=== PATIENT | female | born 1950 | race Caucasian/White ===

== ENCOUNTER 2018-01-21 09:51 | Outpatient (CLI) | payer MEDICARE ==
[2018-01-21 13:46] LABS: Bilirubin Negative (Negative); Blood, Urine Negative (Negative); Clarity CLEAR (Clear); Glucose, Urine (Dipstick) Negative (Negative); Leukocyte Negative (Negative); Nitrite Negative (Negative); Protein, Urine (Dipstick) Negative (Neg-Trace); Specific Gravity, Urine 1.015 (1.002-1.036); pH, Urine 6.5 (5.0-9.0)
[2018-01-21 13:47] LABS: #Eosinphils 0.1 thou/uL (0.0-0.7); #Lymphocytes 1.8 thou/uL (1.20-3.40); #Monocytes 0.3 thou/uL (0.11-0.59); #Neutrophils 2.7 thou/uL (1.40-6.50); %Basophils 0.9 % (0.0-1.0); %Eosinophils 2.6 % (0.0-10.0); %Lymphocytes 36.2 % (21.0-51.0); %Monocytes 6.3 % (0.0-10.0); Hemoglobin 13.2 g/dL (12.0-16.0); Mean Corpuscular Hemoglobin 32.3 pg (27.0-31.0); Mean Corpuscular Volume 95.2 fL (78.0-98.0); Mean Platelet Volume 6.4 fL (7.4-10.4); Platelet Count 249 thou/uL (130-400); RBC Distribution Width 11.9 % (11.5-14.5); Red Blood Cell (RBC) Count 4.08 mill/uL (4.20-5.40)
[2018-01-21 13:51] LABS: Bacteria/HPF None Seen HPF (None Seen); Hyaline Casts/LPF 0-3 HYALINE CAST LPF (0-3 Hyaline); Pathc Cast-AUWi Flag 0.43 (0-2.49); RBC/HPF 0-3 HPF (0-3); Squamous Epithelial 0-3 HPF (0-3); WBC/HPF None Seen HPF (0-3)
[2018-01-21 13:52] LABS: PTT 26.5 SEC (22.9-36.1); Prothrombin Time 13.3 SEC (12.0-14.7)
[2018-01-21 14:26] LABS: Anion Gap 11 mmol/L (10-20); BUN (Urea Nitrogen) 22 mg/dL (9.8-20.1); Calc. Creatinine Clearance 0 mL/min (70-130); Calcium 9.5 mg/dL (7.8-10.44); Carbon Dioxide 27 mmol/L (23-31); Chloride 101 mmol/L (98-107); Estimated GFR-MDRD 65; Glucose 91 mg/dL (80-115); Potassium 3.3 mmol/L (3.5-5.1); Sodium 136 mmol/L (136-145)
--- NOTE | 2018-01-21 14:35 | EKG ---
Test Reason : Blood Pressure : / mmHG Vent. Rate : 071 BPM Atrial Rate : 071 BPM P-R Int : 164 ms QRS Dur : 100 ms QT Int : 422 ms P-R-T Axes : -05 -14 122 degrees QTc Int : 458 ms Normal sinus rhythm Incomplete right bundle branch block Left ventricular hypertrophy with repolarization abnormality Abnormal ECG When compared with ECG of 16-AUG-2014 06:43, Nonspecific T wave abnormality, improved in Inferior leads T wave inversion less evident in Anterolateral leads Confirmed by DILMA KING, SMatheus ([id number]) on 01/21/2018 2:35:00 PM Referred By: SOFÍA Confirmed By:DR. Karin PERERA MD
--- NOTE | 2018-01-21 14:47 | RAD ---
TWO VIEWS CHEST: Comparison: 08-15-14 History: Pre-operative radiograph. FINDINGS: Two views of the chest shows normal sized cardiomediastinal silhouette with atherosclerotic calcifica tions in the aorta. Patient has a moderate hiatal hernia. There is no evidence of consolidation, mass , or pleural effusion. IMPRESSION: 1. No evidence of acute cardiopulmonary disease. 2. Hiatal hernia. 3. Atherosclerotic disease. POS: [facility]
== END 2018-01-21 09:52 | disposition home or self-care (01) ==
LOC: LABBT 09:51
PROVIDERS: ATTEND Orthopaedic Surgery
DX: Z01.818 Encounter for other preprocedural examination (principal); M17.12 Unilateral primary osteoarthritis, left knee; K44.9 Diaphragmatic hernia without obstruction or gangrene; I70.0 Atherosclerosis of aorta
CPT/HCPCS: 71046; 80048; 81001; 85025; 85610; 85730; 87081; 93005; 93010

== ENCOUNTER 2018-01-21 13:00 | Inpatient (IN) | payer MEDICARE ==
[2018-02-02] MEDS ORDERED: CEFAZOLIN 2 GM/50 ML BAG ONE (06:05)
[2018-02-02] MEDS ORDERED: Sodium Chloride 0.9% 100 ML ONE (06:05)
[2018-02-02] MEDS ORDERED: Tranexamic Acid 1,000 MG/10 ML VIAL ONE (06:05)
[2018-02-02] MEDS ORDERED: Vancomycin HCl 1.5 GM in Sodium Chloride 0.9% 250 ML 300 ML IVPB SCH (06:15)
[2018-02-02] MEDS ORDERED: Lidocaine 1% (PF) 30 ML VIAL ONE (06:17)
[2018-02-02] MEDS ORDERED: Fentanyl 100 MCG/2 ML VIAL ONE ×5 (06:17→10:45)
[2018-02-02] MEDS ORDERED: Midazolam HCl 2 mg/2 ml Vial ONE (06:17)
[2018-02-02] MEDS ORDERED: Promethazine HCl 25 MG/ML VIAL IM PRN ×3 (06:52→07:56)
[2018-02-02] MEDS ORDERED: traMADol HCl 50 MG TAB PO PRN ×3 (06:52→07:47)
[2018-02-02] MEDS ORDERED: HYDROcodone/Acetaminophen 10/325 mg Tablet PO PRN ×3 (06:52→07:47)
[2018-02-02] MEDS ORDERED: Zolpidem Tartrate 5 MG TAB PO PRN ×2 (06:52→07:47)
[2018-02-02] MEDS ORDERED: diphenhydrAMINE 25 MG CAP PO PRN (06:52)
[2018-02-02] MEDS ORDERED: Acetaminophen 325 MG TAB PO PRN (06:52)
[2018-02-02] MEDS ORDERED: Ondansetron PF 4 MG/2 ML Vial IVP PRN ×2 (06:52→07:47)
[2018-02-02] MEDS ORDERED: tiZANidine HCl 4 MG TAB PO PRN (06:55)
[2018-02-02] MEDS ORDERED: Lorazepam 1 MG TAB PO PRN (06:55)
[2018-02-02] MEDS ORDERED: Hyoscyamine Sulfate SL 0.125 mg Tablet SL PRN (06:55)
[2018-02-02] MEDS ORDERED: CEFAZOLIN/Water 2 GM/20 ML SYRINGE SLOW IVP SCH (07:00)
[2018-02-02] MEDS ORDERED: Fentanyl 100 MCG/2 ML VIAL SLOW IVP PRN (07:48)
[2018-02-02] MEDS ORDERED: Promethazine HCl 25 MG/ML VIAL SLOW IVP PRN (07:56)
[2018-02-02] MEDS ORDERED: Ondansetron HCl/PF 4 MG/2 ML Vial IVP PRN (07:56)
[2018-02-02] MEDS ORDERED: Losartan/Hydrochlorothiazide 100 mg/25 mg Tablet PO SCH (09:00)
[2018-02-02] MEDS ORDERED: Non-Formulary Item 1 EACH (Multivitamin [Daily Multiple Vitamin] 1 TAB) PO SCH (09:00)
[2018-02-02] MEDS ORDERED: TROSPIUM 20 MG TABLET PO SCH (09:30)
[2018-02-02] MEDS ORDERED: Ketorolac Tromethamine 30 MG/ML VIAL ONE (10:07)
--- NOTE | 2018-02-02 10:39 | RAD ---
TWO VIEW LEFT KNEE: Indication: Total left knee post op, post-surgical evaluation. FINDINGS: There is a left knee arthroplasty without hardware complication. Expected post procedural findings of the regional soft tissues are seen. There is no acute osseous abnormality. IMPRESSION: Post-operative left knee. POS: [facility]
[2018-02-02] MEDS ORDERED: Acetaminophen 1,000 MG in Premix Bag 1 BAG IVPB SCH (11:00)
[2018-02-02] MEDS ORDERED: Ketorolac Tromethamine 30 MG/ML VIAL IVP SCH ×2 (12:00→14:00)
[2018-02-02 12:59] VITALS: BMI 35.0
[2018-02-02] MEDS: Sodium Chloride 0.9% 1,000 ML IV SCH ×3 (13:08→22:42)
[2018-02-02] MEDS: Aspirin 81 mg Enteric Coated Tablet PO SCH ×2 (13:09→19:56)
[2018-02-02] MEDS: CEFAZOLIN 2 GM/50 ML-DEXTROSE 2 GM in Premix Bag 1 BAG IVPB SCH ×2 (14:23→22:41)
--- NOTE | 2018-02-02 16:18 | OP ---
DATE OF PROCEDURE: 02/02/2018 PREOPERATIVE DIAGNOSIS: End-stage tricompartmental osteoarthritis, left knee. POSTOPERATIVE DIAGNOSIS: End-stage tricompartmental osteoarthritis, left knee. PROCEDURE PERFORMED: Cemented cruciate sparing computer-assisted navigated left total knee arthroplasty. TEACHER LEARNING DISABLED: Bayron Richards PA-C. ANESTHESIA: General via LMA augmented with indwelling femoral block with a single shot of sciatic block. COMPONENTS USED: [employer] triathlon size 4 cruciate sparing cemented primary femoral component with a size 4 cruciate sparing primary size 4 tibial cemented component, 11 mm polyethylene fixed bearing insert, and 829 patella button. TOURNIQUET TIME: 55 minutes at 300 mmHg. FINDINGS: End-stage severe degenerative tricompartmental disease, zswy-ye-fadu arthrosis, periarticular osteophyte formation, large serous effusion, hypertrophic synovium, and changes consistent with degenerative genu varum. DRAINS: None. SPECIMENS: None. COMPLICATIONS: None. COUNTS: Correct. INDICATIONS FOR SURGERY: Melanie is a 67-year-old white female, who has had progressive left knee pain when standing and walking for the last 5 to 7 years. She has failed conservative management and elected to proceed with total knee arthroplasty for definitive treatment of her pain. PROCEDURE IN DETAIL: After informed consent was obtained in the preoperative holding area, the patient was taken to the operative suite where general anesthesia was induced. Once adequate level of general anesthesia was obtained, the patient was positioned and a well-padded tourniquet was placed around the left proximal thigh. The left lower extremity was then prepped and draped in the usual sterile fashion. Prior to exsanguination, a time-out was called and all members of the surgical team agreed upon site, surgeon, and patient. The extremity was then exsanguinated and the tourniquet was raised. A midline longitudinal incision was then made directly over the patella extending 2 fingerbreadths above the superior pole of the patella and 2 fingerbreadths inferior to the inferior patellar pole of the patella. Deeper subcutaneous layers were dissected sharply and local bleeding was controlled with Bovie electrocautery. A quad tendon longitudinal split was then made sharply and a median parapatellar arthrotomy was carried out both sharp and with Bovie electrocautery, carried down to 1 fingerbreadth medial to the tibial tubercle. The knee was then placed into flexion and the patella was everted nicely, and a copious fat pad ectomy was performed allowing for greater exposure of the tibia. The computer-assisted distal femoral fiducial was then placed and pinned firmly, and the distal femoral cutting guide was pinned firmly into place. The oscillating saw was then used to remove the appropriate amount of bone. The 4-in-1 cutting block was then placed on the distal femur and the oscillating saw was used to remove the appropriate amount of bone off the anterior, posterior, and chamfer cuts. After completion of bone cuts, the anterior cruciate ligament was resected sharply and the posterior cruciate ligament retractor was placed and the tibia was subluxed for better exposure. Partial meniscectomies were carried out, and the tibial computer-assisted fiducial was pinned, and the cutting guide was placed. Oscillating saw was then used to remove the bone, with Hohmann retractors used to take care and protect the collateral ligaments. After the tibial resection was performed, a laminar ambulatory care nurse was placed in between the freshened bone cuts. The knee placed at 90 degrees and further bilateral meniscectomies were carried out, and the curved osteotome and curettage were used to remove any excess bone spurs in the posterior compartment. The trial femoral component, tibial baseplate were placed with the appropriate polyethylene trial insert with an appropriate polyethylene spacer and patellar button. The knee was taken through full range of motion with flexion and extension from 0 to 90 degrees and patellar broach squarely in the trochlea without any squinting or subluxation noted. The knee was also stable to varus and valgus stressing at 0, 15, 45, and 90 degrees of flexion. The drawer was negative. All trial components were then removed and the keel punch was used to provide the appropriate defect in the tibia with a mallet. The freshened bone cuts were copiously irrigated with pulsatile lavage of about 1.5 L to remove all excess debris. The freshened bone cuts were then dried with suction and lap sponge. The knee was placed in flexion and retractors were placed to provide access to all bone cuts. Tobramycin-impregnated methyl methacrylate cement was then placed on the freshened bone cuts and implants which were malleted firmly into place. Curettage and Yermo elevators were used to remove any excess bone cement. The knee was placed into full extension and the patellar button was placed under compression, and the cement was allowed to cure. Once completed, the components were again taken through full range of motion and copious irrigation of the knee was carried out with another liter of normal saline. All components were inspected fully with full range of motion and varus and valgus stressing. There was no laxity noted and full extension was observed clinically. Primary closure was accomplished with #2 interrupted Vicryl stitch of the arthrotomy defect. This was oversewn with a #2 running Quill barbed stitch. The subcutaneous layer was then closed with a running 0 barbed Monocryl stitch and skin closure accomplished with a running subcuticular 3-0 Monocryl barbed Quill stitch and augmented with cement on the skin. Tourniquet was lowered. Good spontaneous return of distal pulses was noted clinically and a sterile dressing was applied to the incision. The procedure was terminated without any complications. The patient was awakened in the operative suite and taken to the recovery room in stable condition. Job ID: [id number]
[2018-02-02] MEDS: Ketorolac Tromethamine 30 MG/ML VIAL IVP SCH ×2 (16:25→22:40)
[2018-02-02] MEDS ORDERED: PROPOFOL 200 MG/20 ML VIAL ONE (17:48)
[2018-02-02] MEDS ORDERED: Lidocaine 1% PF 5 ML VIAL ONE (17:48)
[2018-02-02] MEDS ORDERED: Ondansetron PF 4 MG/2 ML Vial ONE (17:48)
[2018-02-02] MEDS ORDERED: Bupivacaine HCl 0.5%/Epinephrine 1:200,000/PF 30 ml Vial ONE (19:04)
[2018-02-02] MEDS ORDERED: Bupivacaine 0.25% HCL 30 ML VIAL ONE (19:04)
[2018-02-02] MEDS ORDERED: Ropivacaine 0.5% HCl/PF (150 MG/30 ML VIAL) ONE (19:04)
[2018-02-02] MEDS: Gabapentin 100 MG CAP PO SCH (19:56)
[2018-02-02] MEDS: TROSPIUM 20 MG TABLET PO SCH (19:59)
[2018-02-02] MEDS ORDERED: Amlodipine 10 MG TAB PO SCH (21:00)
[2018-02-02] MEDS ORDERED: Prevnar 13-Val Conj/PF 0.5 ML SYRINGE IM ONE (21:00)
[2018-02-03] MEDS: Ketorolac Tromethamine 30 MG/ML VIAL IVP SCH ×4 (04:47→21:51)
[2018-02-03 06:22] LABS: Hemoglobin 10.4 g/dL (12.0-16.0); Mean Corpuscular HGB CONC 34.5 g/dL (32.0-36.0); Mean Corpuscular Hemoglobin 33.2 pg (27.0-31.0); Mean Corpuscular Volume 96.1 fL (78.0-98.0); Mean Platelet Volume 6.1 fL (7.4-10.4); Platelet Count 177 thou/uL (130-400); RBC Distribution Width 11.9 % (11.5-14.5); Red Blood Cell (RBC) Count 3.13 mill/uL (4.20-5.40); White Blood Cell (WBC) Count 4.9 thou/uL (4.8-10.8)
[2018-02-03] MEDS: Senokot S 8.6-50 MG TAB PO SCH ×2 (08:10→21:50)
[2018-02-03] MEDS: Ferrous Gluconate 324 MG TAB PO SCH ×2 (08:10→21:50)
[2018-02-03] MEDS: Aspirin 81 mg Enteric Coated Tablet PO SCH ×2 (08:10→21:49)
[2018-02-03] MEDS: TROSPIUM 20 MG TABLET PO SCH ×2 (08:11→21:49)
[2018-02-03] MEDS: Multivitamin W/ Minerals 1 TAB PO SCH (08:11)
[2018-02-03] MEDS: HYDROcodone/Acetaminophen 10/325 mg Tablet PO PRN ×2 (08:14→14:36)
[2018-02-03] MEDS ORDERED: Losartan/Hydrochlorothiazide 100 mg/25 mg Tablet PO SCH (09:00)
[2018-02-03] MEDS: Ropivacaine HCl/PF 250 ML in Premix Bag 1 BAG NERVE BLCK SCH (10:08)
[2018-02-03] MEDS: Sodium Chloride 0.9% 1,000 ML IV SCH ×2 (12:09→23:34)
--- NOTE | 2018-02-03 13:41 | CON ---
DATE OF CONSULTATION: DATE OF PROCEDURE: 02/02/2018. REASON FOR CONSULTATION: Medical management. HOSPITAL COURSE: This is a 67-year-old female patient with history of lymphoma, status post chemotherapy, history of hypertension, and end-stage degenerative joint disease of her knees, who presented for left total knee replacement. The patient has failed outpatient therapy of her arthritis and was admitted by Dr. Marcano for left total knee replacement due to end-stage arthritis and definitive treatment of her pain and arthritis of her knee. She underwent computer-assisted left total knee arthroplasty by Dr. Marcano yesterday. She has had uneventful postoperative period so far. Her blood pressure has been controlled. It is little bit low this morning after her pain medicines, but she is otherwise doing well. Denies chest pain, shortness of breath. Her appetite is okay. She was able to walk to the bathroom. Her Alexander catheter has been removed. PAST MEDICAL HISTORY: Lymphoma diagnosed in 2011 followed by Oncology as she is status post chemotherapy and radiation therapy and doing well, hypertension, degenerative joint disease, history of reflux, history of depression and anxiety. HOME MEDICATIONS: Include: 1. Tylenol p.r.n. 2. Norvasc 10 mg daily. 3. Aspirin 81 mg daily. 4. Gabapentin 100 mg at bedtime. 5. Losartan/hydrochlorothiazide 100/25 once daily. 6. Levsin p.r.n. ALLERGIES: NONE KNOWN. PAST SURGICAL HISTORY: Includes hysterectomy, status post fundoplication, status post left meniscal tear repair. FAMILY HISTORY: Noncontributory. SOCIAL HISTORY: She is . Lives at home with her with help from her family and neighbors. No smoking. No alcohol. REVIEW OF SYSTEMS: As per the history of present illness. CONSTITUTIONAL: She denies any recent fevers, chills, or recent illness. HEENT: No headache, visual, or hearing changes. CARDIAC: No chest pain, shortness of breath, or palpitations. PULMONARY: Denies cough or hemoptysis. GI: Positive for history of reflux. No abdominal pain, melena, or hematochezia. : Denies dysuria or hematuria. NEUROLOGIC: No seizures or syncope. MUSCULOSKELETAL: Positive for arthritis with persistent joint pain. PHYSICAL EXAMINATION: VITAL SIGNS: Temperature 99.2, pulse of 90, respirations 18, blood pressure 104/64, and pulse ox is 95% on room air. GENERAL: She is awake and alert, in no acute distress. Speech is clear. NECK: Supple. HEART: Regular rate and rhythm. LUNGS: Clear bilaterally. ABDOMEN: Soft. Positive bowel sounds. EXTREMITIES: No edema. 2+ peripheral pulses bilaterally. Dressing on the left knee. LABORATORY DATA: White blood cell count this morning 4,900, hemoglobin and hematocrit 10.4 and 30.1, and platelets of 177. ASSESSMENT AND PLAN: This is a 67-year-old female patient with a history of lymphoma in remission and hypertension which is controlled, now status post left total knee replacement. 1. Postoperative care as per Orthopedics. She is to start physical therapy and she has home therapy arranged upon her discharge. 2. Hypertension. We will continue her medications. I will watch for low readings due to her analgesia and monitor closely. 3. Lymphoma, in remission. Continue monitoring as an outpatient. We will follow along with you. Job ID: [id number]
[2018-02-03] MEDS: Amlodipine 10 MG TAB PO SCH (21:50)
[2018-02-03] MEDS: Gabapentin 100 MG CAP PO SCH (21:50)
[2018-02-04] MEDS: Ketorolac Tromethamine 30 MG/ML VIAL IVP SCH ×2 (05:00→14:24)
[2018-02-04 06:37] LABS: Hemoglobin 10.9 g/dL (12.0-16.0); Mean Corpuscular HGB CONC 33.1 g/dL (32.0-36.0); Mean Corpuscular Hemoglobin 32.3 pg (27.0-31.0); Mean Corpuscular Volume 97.5 fL (78.0-98.0); Mean Platelet Volume 6.4 fL (7.4-10.4); Platelet Count 205 thou/uL (130-400); RBC Distribution Width 11.8 % (11.5-14.5); Red Blood Cell (RBC) Count 3.38 mill/uL (4.20-5.40); White Blood Cell (WBC) Count 4.9 thou/uL (4.8-10.8)
[2018-02-04] MEDS: HYDROcodone/Acetaminophen 10/325 mg Tablet PO PRN ×2 (08:40→20:31)
[2018-02-04] MEDS: Multivitamin W/ Minerals 1 TAB PO SCH (08:43)
[2018-02-04] MEDS: Aspirin 81 mg Enteric Coated Tablet PO SCH ×2 (08:44→20:31)
[2018-02-04] MEDS: Ferrous Gluconate 324 MG TAB PO SCH ×2 (08:44→20:31)
[2018-02-04] MEDS: Senokot S 8.6-50 MG TAB PO SCH ×2 (08:44→20:31)
[2018-02-04] MEDS: TROSPIUM 20 MG TABLET PO SCH ×2 (08:48→20:31)
[2018-02-04] MEDS: Sodium Chloride 0.9% 1,000 ML IV SCH ×3 (08:53→20:34)
[2018-02-04] MEDS: Ropivacaine HCl/PF 250 ML in Premix Bag 1 BAG NERVE BLCK SCH (14:23)
[2018-02-04] MEDS: Gabapentin 100 MG CAP PO SCH (20:31)
[2018-02-04] MEDS: Amlodipine 10 MG TAB PO SCH (20:34)
[2018-02-05 07:50] VITALS: TEMP 97.5
[2018-02-05] MEDS: HYDROcodone/Acetaminophen 10/325 mg Tablet PO PRN (08:13)
[2018-02-05] MEDS: Ferrous Gluconate 324 MG TAB PO SCH (08:13)
[2018-02-05] MEDS: Senokot S 8.6-50 MG TAB PO SCH (08:13)
[2018-02-05] MEDS: TROSPIUM 20 MG TABLET PO SCH (08:14)
[2018-02-05] MEDS: Aspirin 81 mg Enteric Coated Tablet PO SCH (08:14)
[2018-02-05] MEDS: Multivitamin W/ Minerals 1 TAB PO SCH (08:16)
[2018-02-05 11:35] VITALS: BP 129/78
== END 2018-02-05 12:42 | disposition home or self-care (01) | DRG 470 ==
LOC: SJJU 02-02 05:45 → EDSTATUS 02-02 13:00
PROVIDERS: ADMIT Orthopaedic Surgery; ATTEND Orthopaedic Surgery
PROC: 0SRD0J9 Replacement of Left Knee Joint with Synthetic Substitute, Cemented, Open Approach (ICD-10-PCS; principal; 2018-02-02)
DX: M17.12 Unilateral primary osteoarthritis, left knee (principal); C85.90 Non-Hodgkin lymphoma, unspecified, unspecified site; I10 Essential (primary) hypertension; K21.9 Gastro-esophageal reflux disease without esophagitis; F32.9 Major depressive disorder, single episode, unspecified; F41.9 Anxiety disorder, unspecified
CPT/HCPCS: 36415; 85027; C1713; C1776; G8978-GP-CK; G8979-GP-CI; J0131; J0670; J1885; J2001; J2250; J2405; J2704; J2795; J3010; J3370; J7050; S0020

== ENCOUNTER 2018-01-28 10:32 | Outpatient (CLI) | payer MEDICARE | END 2018-01-28 10:33 | disposition home or self-care (01) | LOC: LABBT 10:32 | PROVIDERS: ATTEND Orthopaedic Surgery | DX: Z01.812 Encounter for preprocedural laboratory examination (principal); M17.12 Unilateral primary osteoarthritis, left knee | CPT/HCPCS: 86850; 86900; 86901 ==

== ENCOUNTER 2018-04-08 10:36 | Outpatient (CLI) | payer MEDICARE ==
--- NOTE | 2018-04-08 14:56 | CT ---
CT ABDOMEN AND PELVIS WITH CONTRAST: HISTORY: Left flank pain, kidney stones, lymphoma. COMPARISON: A PET CT from 2014. FINDINGS: Lung bases are clear. No pericardial effusion. Large sliding hiatal hernia containing 30% of the ga stric volume within the thoracic cavity. The spleen is unremarkable. Multiple splenic arterial calcifications. The aortic contour is nonaneu rysmal. There is abnormal thickening of the left pelvic sidewall adjacent to the sigmoid colon which could be ovarian remnant versus thickening from prior diverticulitis and less likely a mass. Extensive diver ticular disease sigmoid colon. No retroperitoneal adenopathy. No adenopathy at the abnormal focus in left periaortic region seen in 2012. The exam is limited as it is abnormally delayed and there is contrast within the renal collecting sys tems limiting evaluation for a calculus. No renal calculus or ureteral calculus is appreciated. No hydroureteral nephrosis. O secondary evidence of a recently passed stone. Adrenal glands are unremarkable. Severe facet arthrosis lower lumbar spine. No suspicious osteolyti c or osteoblastic lesions. The liver and gallbladder are normal. IMPRESSION: 1. No acute inflammatory process of the abdomen and pelvis. 2. Unchanged large sliding hiatal hernia since 2012. 3. Soft tissue mass along the left pelvic sidewall felt to represent the ovarian remnant as this is unchanged from 2012 exam. 4. Extensive diverticular disease sigmoid colon without active inflammation. 5. No evidence of active lymphoma. No adenopathy. POS: [facility]
== END 2018-04-08 10:37 | disposition home or self-care (01) ==
LOC: SCSCT 10:36
PROVIDERS: ATTEND Internal Medicine Hematology & Oncology
DX: R10.9 Unspecified abdominal pain (principal); K44.9 Diaphragmatic hernia without obstruction or gangrene; K57.30 Diverticulosis of large intestine without perforation or abscess without bleeding; R19.09 Other intra-abdominal and pelvic swelling, mass and lump; Z85.72 Personal history of non-Hodgkin lymphomas
CPT/HCPCS: 74177

== ENCOUNTER 2018-08-04 14:02 | Outpatient (CLI) | payer MEDICARE ==
--- NOTE | 2018-08-05 07:33 | MMO ---
Bilateral MAMMO Bilat Diag DDI+EVIN. CLINICAL HISTORY: Patient is 68 years old and is seen for diagnostic exam. The patient has the following family history of breast cancer: sister, in 2018. The patient has a history of lymphoma. The patient has a history of right cyst aspiration in 1980 - benign. VIEWS: The views performed were: bilateral craniocaudal with tomosynthesis; bilateral mediolateral oblique with tomosynthesis; and bilateral mediolateral. FILMS COMPARED: The present examination has been compared to prior imaging studies performed at [facility] on 04/05/2015, 05/13/2016, 06/01/2017 and 06/02/2017. MAMMOGRAM FINDINGS: There are scattered fibroglandular densities. Finding 1: There are two stable intramammary lymph nodes seen in the right breast. Finding 2: There are vascular calcifications seen in both breasts. There are no suspicious masses, suspicious calcifications, or new areas of architectural distortion. IMPRESSION: THERE IS NO MAMMOGRAPHIC EVIDENCE OF MALIGNANCY. A ROUTINE FOLLOW-UP MAMMOGRAM IN 1 YEAR IS RECOMMENDED. THE RESULTS OF THIS EXAM WERE SENT TO THE PATIENT. ACR BI-RADS Category 2 - Benign finding MAMMOGRAPHY NOTE: 1. A negative mammogram report should not delay a biopsy if a dominant of clinically suspicious mass is present. 2. Approximately 10% to 15% of breast cancers are not detected by mammography. 3. Adenosis and dense breasts may obscure an underlying neoplasm.
== END 2018-08-04 14:03 | disposition home or self-care (01) ==
LOC: BICMAMMO 14:02
PROVIDERS: ATTEND Specialist
DX: R92.8 Other abnormal and inconclusive findings on diagnostic imaging of breast (principal)
CPT/HCPCS: 77066; G0279

== ENCOUNTER 2018-12-08 11:18 | Outpatient (CLI) | payer MEDICARE ==
--- NOTE | 2018-12-08 13:23 | CT ---
CT ABDOMEN AND PELVIS WITHOUT CONTRAST: Date: 12/08/18 HISTORY: Hematuria. Right-sided flank pain. COMPARISON: 04/08/18. FINDINGS: Absence of oral and IV contrast reduces the sensitivity of exam, particularly for evaluation of solid organs and bowel. A moderate sized hiatal hernia is again seen. No calcified gallstones are noted. No calculi seen in t he kidneys, ureters, or urinary bladder. No hydronephrosis noted. The small bowel loops are not abnormally dilated. Scattered colonic diverticula. No free air or free fluid is seen in the abdomen or pelvis. There are vascular calcifications without evidence of aneurysmal dilatation of the abdominal aorta. D egenerative changes are present in the spine. IMPRESSION: 1. No CT evidence of urinary tract calculi or obstruction. 2. Hiatal hernia. 3. Colonic diverticulosis. POS: [facility]
== END 2018-12-08 11:19 | disposition home or self-care (01) ==
LOC: SCSCT 11:18
PROVIDERS: ATTEND Family Medicine
DX: R31.21 Asymptomatic microscopic hematuria (principal); K44.9 Diaphragmatic hernia without obstruction or gangrene; K57.30 Diverticulosis of large intestine without perforation or abscess without bleeding
CPT/HCPCS: 74176

== ENCOUNTER 2020-01-05 07:00 | Outpatient (CLI) | payer MEDICARE ==
[2020-01-05 15:09] LABS: #Eosinphils 0.1 10x3/uL (0.0-0.5); #Monocytes 0.3 10x3/uL (0.0-1.1); #Neutrophils 3.1 10x3/uL (1.5-8.4); %Basophils 0.8 % (0.0-2.0); %Eosinophils 2.3 % (0.0-6.0); %Lymphocytes 32.6 % (18.0-47.0); %Monocytes 5.9 % (0.0-10.0); %Neutrophils 58.2 % (40.0-75.0); Hemoglobin 13.3 g/dL (12.0-16.0); Mean Corpuscular HGB CONC 34.1 G/DL (32.0-36.0); Mean Corpuscular Hemoglobin 32.3 PG (27.0-33.0); Mean Corpuscular Volume 94.7 fl (80.0-100.0); Mean Platelet Volume 8.9 fl (7.4-10.4); Platelet Count 236 10x3/uL (130-400); RBC Distribution Width 12.2 % (11.5-14.5); Red Blood Cell (RBC) Count 4.12 10x6/uL (3.90-5.20); White Blood Cell (WBC) Count 5.3 10x3/uL (4.5-11.0)
[2020-01-05 15:26] LABS: Anion Gap 13 mmol/L (10-20); BUN (Urea Nitrogen) 19 mg/dL (9.8-20.1); Calc. Creatinine Clearance 0 mL/min (70-130); Calcium 8.9 mg/dL (7.8-10.44); Carbon Dioxide 26 mmol/L (23-31); Chloride 98 mmol/L (98-107); Estimated GFR-MDRD 64; Glucose 100 mg/dL (83-110); Potassium 3.8 mmol/L (3.5-5.1); Sodium 133 mmol/L (136-145)
[2020-01-05 15:41] LABS: Prothrombin Time 10.3 sec (9.5-12.1)
[2020-01-06 14:36] LABS: SARS-CoV-2 MS2 Positive; SARS-CoV-2 N Gene Negative; SARS-CoV-2 S Gene Negative; SARS-CoV-2 by NAA Not Detected (NotDetected); SARS-CoV-2 orf1ab Negative
--- NOTE | 2020-01-10 06:55 | EKG ---
Test Reason : Blood Pressure : / mmHG Vent. Rate : 077 BPM Atrial Rate : 077 BPM P-R Int : 144 ms QRS Dur : 104 ms QT Int : 400 ms P-R-T Axes : -21 -17 138 degrees QTc Int : 452 ms Normal sinus rhythm Left ventricular hypertrophy with repolarization abnormality Abnormal ECG No previous ECGs available Confirmed by CHELLE RAMIREZ MD ([id number]) on 01/10/2020 6:54:56 AM Referred By: CALLUM Confirmed By:CHELLE RAMIREZ MD
== END 2020-01-05 07:01 | disposition home or self-care (01) ==
LOC: LABBT 07:00
PROVIDERS: ATTEND Orthopaedic Surgery
DX: Z01.818 Encounter for other preprocedural examination (principal); Z20.828 Contact with and (suspected) exposure to other viral communicable diseases; M17.11 Unilateral primary osteoarthritis, right knee
CPT/HCPCS: 80048; 85025; 85610; 87081; 93005; U0003; 87635; 93010

== ENCOUNTER 2020-02-02 15:04 | Inpatient (IN) | payer MEDICARE ==
[2020-02-02] MEDS ORDERED: HYDROcodone/Acetaminophen 10/325 mg Tablet PO PRN (16:24)
--- NOTE | 2020-02-02 16:25 | RAD ---
Exam: XR Knee Rt 2 View HISTORY: Injury after falling getting into car. COMPARISON: 01/10/2020 FINDINGS: A right total knee prosthesis noted in place. There is a comminuted fracture involving the distal rig ht femoral metadiaphysis with the fracture extending obliquely from the medial aspect of the right distal femoral metadiaphysis to the limited remaining right femoral condyle. The fracture fragments a re by 1.2 cm and mildly displaced. A suprapatellar joint effusion is seen. No dislocation is identified. IMPRESSION: Comminuted distal right femur fracture with mild separation and displacement of fracture fragments. Right knee joint effusion.
[2020-02-02] MEDS ORDERED: Vancomycin HCl 1.5 GM in Sodium Chloride 0.9% 250 ML 300 ML IVPB SCH (16:30)
[2020-02-02] MEDS ORDERED: CEFAZOLIN 2 GM in Premix Bag 1 BAG IVPB SCH (16:30)
[2020-02-02] MEDS: HYDROcodone/Acetaminophen 10/325 mg Tablet PO PRN ×2 (16:37→22:38)
[2020-02-02] MEDS: Sodium Chloride 0.9% 1,000 ML IV SCH ×2 (16:37→20:31)
[2020-02-02 16:40] LABS: #Eosinphils 0.1 thou/uL (0.0-0.7); #Lymphocytes 0.8 thou/uL (1.20-3.40); #Monocytes 0.5 thou/uL (0.11-0.59); #Neutrophils 8.8 thou/uL (1.40-6.50); %Basophils 0.1 % (0.0-1.0); %Eosinophils 0.5 % (0.0-10.0); %Lymphocytes 8.3 % (21.0-51.0); %Monocytes 4.7 % (0.0-10.0); %Neutrophils 86.4 % (42.0-75.0); Hemoglobin 11.9 g/dL (12.0-16.0); Mean Corpuscular Hemoglobin 32.8 pg (27.0-31.0); Mean Corpuscular Volume 96.3 fL (78.0-98.0); Mean Platelet Volume 6.1 fL (7.4-10.4); Platelet Count 283 thou/uL (130-400); RBC Distribution Width 11.7 % (11.5-14.5); Red Blood Cell (RBC) Count 3.62 mill/uL (4.20-5.40); White Blood Cell (WBC) Count 10.1 thou/uL (4.8-10.8)
[2020-02-02 16:41] VITALS: BMI 34.3
[2020-02-02] MEDS: Fentanyl 100 MCG/2 ML VIAL SLOW IVP PRN ×2 (17:21→20:31)
[2020-02-02] MEDS: Ketorolac Tromethamine 30 MG/ML VIAL IVP PRN (17:21)
[2020-02-03] MEDS: Fentanyl 100 MCG/2 ML VIAL SLOW IVP PRN ×2 (01:34→06:26)
[2020-02-03] MEDS: Ketorolac Tromethamine 30 MG/ML VIAL IVP PRN (01:35)
[2020-02-03] MEDS: diphenhydrAMINE 50 MG/ML VIAL IVP PRN ×2 (01:35→20:09)
[2020-02-03 06:02] LABS: Anion Gap 10 mmol/L (10-20); BUN (Urea Nitrogen) 23 mg/dL (9.8-20.1); Calc. Creatinine Clearance 88 mL/min (70-130); Calcium 8.5 mg/dL (7.8-10.44); Carbon Dioxide 30 mmol/L (23-31); Chloride 98 mmol/L (98-107); Glucose 106 mg/dL (83-110); Potassium 4.1 mmol/L (3.5-5.1); Sodium 134 mmol/L (136-145)
[2020-02-03] MEDS ORDERED: Midazolam HCl 2 mg/2 ml Vial ONE (07:58)
[2020-02-03] MEDS ORDERED: Fentanyl 100 MCG/2 ML VIAL ONE ×4 (07:58→12:51)
[2020-02-03] MEDS ORDERED: Fentanyl 100 MCG/2 ML VIAL IV PRN (08:20)
[2020-02-03] MEDS ORDERED: Zolpidem Tartrate 5 MG TAB PO PRN (08:30)
[2020-02-03] MEDS ORDERED: HYDROcodone/Acetaminophen 5/325 mg Tablet PO PRN (08:30)
[2020-02-03] MEDS ORDERED: Ropivacaine HCl/PF 250 ML in Premix Bag 1 BAG NERVE BLCK SCH (08:30)
[2020-02-03] MEDS ORDERED: Promethazine HCl 25 MG/ML VIAL IM PRN ×2 (08:30→10:53)
[2020-02-03] MEDS ORDERED: traMADol HCl 50 MG TAB PO PRN (08:30)
[2020-02-03] MEDS ORDERED: Ondansetron PF 4 MG/2 ML Vial IVP PRN (08:30)
[2020-02-03] MEDS ORDERED: Ketorolac Tromethamine 30 MG/ML VIAL IVP PRN (08:30)
[2020-02-03 09:01] LABS: SARS-CoV-2 MS2 Positive; SARS-CoV-2 N Gene Negative; SARS-CoV-2 S Gene Negative; SARS-CoV-2 by NAA Not Detected (NotDetected); SARS-CoV-2 orf1ab Negative
[2020-02-03] MEDS ORDERED: Vancomycin 1.5 GRAM/300 ML BAG ONE (09:27)
[2020-02-03] MEDS ORDERED: Phenylephrine 10 MG/ML VIAL ONE (09:33)
[2020-02-03] MEDS ORDERED: Senokot S 8.6-50 MG TAB PO PRN (10:39)
[2020-02-03] MEDS ORDERED: Acetaminophen 325 MG TAB PO PRN (10:39)
[2020-02-03] MEDS ORDERED: Ondansetron ODT 4 MG TAB PO PRN (10:39)
[2020-02-03] MEDS ORDERED: ePHEDrine 50 MG/ML VIAL ONE (10:40)
[2020-02-03] MEDS ORDERED: Bupivacaine HCl 0.5%/Epinephrine 1:200,000/PF 30 ml Vial ONE (10:40)
[2020-02-03] MEDS ORDERED: PROPOFOL 200 MG/20 ML VIAL ONE (10:40)
[2020-02-03] MEDS ORDERED: PHENYLEPHRINE-NS 100 MCG/ML 10 ML SYRINGE ONE (10:40)
[2020-02-03] MEDS ORDERED: Lidocaine 1% PF 5 ML VIAL ONE (10:40)
[2020-02-03] MEDS ORDERED: Ondansetron HCl/PF 4 MG/2 ML Vial IVP PRN (10:53)
[2020-02-03] MEDS ORDERED: Promethazine HCl 25 MG/ML VIAL SLOW IVP PRN (10:53)
[2020-02-03] MEDS: Sodium Chloride 0.9% 1,000 ML IV SCH ×2 (12:38→18:19)
--- NOTE | 2020-02-03 12:41 | OP ---
DATE OF PROCEDURE: 02/03/2020 PROCEDURE PERFORMED: Open reduction and internal fixation of right femur fracture. PREOPERATIVE DIAGNOSIS: Right distal femur fracture. POSTOPERATIVE DIAGNOSIS: Right distal femur fracture. INDEPENDENT TRADER: Xin Payne PA-C BLOOD LOSS: About 300. SPECIMEN: None. DRAINS: None. COMPLICATION: None. IMPLANTS USED: Synthes 360 mm x 13 mm retrograde nail with a locking screw proximally, locking screw distally, and a spiral blade distally. DESCRIPTION OF PROCEDURE: The patient was taken to the operating room, where general anesthesia was induced. Right leg was prepped and draped in usual sterile fashion. I opened up her old incision for her total knee. Her retinaculum was completely healed. There was no rupture of the extensor mechanism. I performed a medial parapatellar arthrotomy, evacuated hematoma from the fracture. I cleaned the fracture lines. Fracture was anatomically reduced, held with clamp, then placed a ball-tipped guide samuel across the fracture and reamed to size 13 mm. I placed a 13 mm nail up the femur and locked it as described above. This gave a very stable reduction. Pulsatile lavage irrigation was performed, total of 5 L. Retinaculum was repaired with #2 Vicryl and #2 Quill. Subcu was closed with 0 Quill. Skin was closed with 2-0 Prolene as were the portals for the locking screws and spiral blade. Job ID: [id number]
--- NOTE | 2020-02-03 14:31 | RAD ---
EXAM: 3 fluoroscopic intraoperative views of the right femur DATE: 02/03/2020 8:35 AM INDICATION: ORIF of right femur COMPARISON: Right knee radiograph dated February 02, 2020 FINDING: Since comparison examination there is been interval reduction and intramedullary rodding of the distal right femoral metadiaphyseal fracture. Fracture alignment is near anatomic. The instrumentation projects in the expected position. The total fluoroscopic time was 52.6 seconds. IMPRESSION:Intramedullary rodding of the distal right femur fracture
[2020-02-03] MEDS: Famotidine 20 MG TAB PO SCH (20:02)
[2020-02-03] MEDS: traMADol HCl 50 MG TAB PO PRN (20:02)
[2020-02-03] MEDS: Gabapentin 100 MG CAP PO SCH (20:02)
[2020-02-03] MEDS: Amlodipine 5 MG TAB PO SCH (22:17)
[2020-02-04] MEDS: Sodium Chloride 0.9% 1,000 ML IV SCH ×4 (01:54→18:17)
[2020-02-04 05:36] LABS: #Basophils 0.1 thou/uL (0.0-0.2); #Eosinphils 0.2 thou/uL (0.0-0.7); #Lymphocytes 0.9 thou/uL (1.20-3.40); #Monocytes 0.4 thou/uL (0.11-0.59); #Neutrophils 3.4 thou/uL (1.40-6.50); %Eosinophils 4.3 % (0.0-10.0); %Lymphocytes 18.8 % (21.0-51.0); %Monocytes 8.9 % (0.0-10.0); %Neutrophils 67.1 % (42.0-75.0); Hemoglobin 7.7 g/dL (12.0-16.0); Mean Corpuscular HGB CONC 33.1 g/dL (32.0-36.0); Mean Corpuscular Hemoglobin 32.4 pg (27.0-31.0); Mean Corpuscular Volume 97.8 fL (78.0-98.0); Mean Platelet Volume 6.1 fL (7.4-10.4); Platelet Count 169 thou/uL (130-400); RBC Distribution Width 11.9 % (11.5-14.5); Red Blood Cell (RBC) Count 2.39 mill/uL (4.20-5.40)
--- NOTE | 2020-02-04 08:32 | RAD ---
RIGHT ANKLE 3 VIEWS: Date: 02/04/2020 HISTORY: Fall, right ankle pain. FINDINGS/IMPRESSION: Soft tissue swelling is present. The ankle mortise is maintained. No acute fracture or dislocation is seen. There is a plantar calcaneal spur. POS: [facility]
[2020-02-04] MEDS: Zinc Sulfate 220 MG CAP PO SCH (08:44)
[2020-02-04] MEDS: Aspirin 81 mg Enteric Coated Tablet PO SCH (08:44)
[2020-02-04] MEDS: Multivitamin W/ Minerals 1 TAB PO SCH (08:44)
[2020-02-04] MEDS: Famotidine 20 MG TAB PO SCH ×2 (08:44→19:39)
[2020-02-04] MEDS: Ascorbic Acid 500 mg Chewable Tablet PO SCH (08:44)
[2020-02-04] MEDS: Losartan 25 MG TAB PO SCH (08:45)
[2020-02-04] MEDS: Hydrochlorothiazide 25 MG TAB PO SCH (08:45)
[2020-02-04 16:57] LABS: Hemoglobin 9.2 g/dL (12.0-16.0)
[2020-02-04] MEDS: diphenhydrAMINE 50 MG/ML VIAL IVP PRN (19:38)
[2020-02-04] MEDS: traMADol HCl 50 MG TAB PO PRN (19:39)
[2020-02-04] MEDS: Gabapentin 100 MG CAP PO SCH (19:40)
[2020-02-04] MEDS: Amlodipine 5 MG TAB PO SCH (21:29)
[2020-02-05] MEDS: HYDROcodone/Acetaminophen 5/325 mg Tablet PO PRN (03:51)
[2020-02-05] MEDS: Sodium Chloride 0.9% 1,000 ML IV SCH ×3 (03:53→16:34)
[2020-02-05] MEDS: Ascorbic Acid 500 mg Chewable Tablet PO SCH (09:17)
[2020-02-05] MEDS: Losartan 25 MG TAB PO SCH (09:17)
[2020-02-05] MEDS: Hydrochlorothiazide 25 MG TAB PO SCH (09:17)
[2020-02-05] MEDS: Multivitamin W/ Minerals 1 TAB PO SCH (09:17)
[2020-02-05] MEDS: Famotidine 20 MG TAB PO SCH ×2 (09:17→19:36)
[2020-02-05] MEDS: Aspirin 81 mg Enteric Coated Tablet PO SCH (09:17)
[2020-02-05] MEDS: Zinc Sulfate 220 MG CAP PO SCH (09:18)
[2020-02-05] MEDS: Amlodipine 5 MG TAB PO SCH (19:35)
[2020-02-05] MEDS: Gabapentin 100 MG CAP PO SCH (19:36)
[2020-02-06] MEDS: Sodium Chloride 0.9% 1,000 ML IV SCH ×3 (03:00→18:42)
[2020-02-06] MEDS: traMADol HCl 50 MG TAB PO PRN (05:25)
[2020-02-06] MEDS: Famotidine 20 MG TAB PO SCH ×2 (09:06→20:30)
[2020-02-06] MEDS: Aspirin 81 mg Enteric Coated Tablet PO SCH (09:06)
[2020-02-06] MEDS: Losartan 25 MG TAB PO SCH (09:06)
[2020-02-06] MEDS: Zinc Sulfate 220 MG CAP PO SCH (09:07)
[2020-02-06] MEDS: Hydrochlorothiazide 25 MG TAB PO SCH (09:07)
[2020-02-06] MEDS: Multivitamin W/ Minerals 1 TAB PO SCH (09:07)
[2020-02-06] MEDS: Ascorbic Acid 500 mg Chewable Tablet PO SCH (09:07)
[2020-02-06] MEDS ORDERED: Ropivacaine HCl/PF 250 ML in Premix Bag 1 BAG NERVE BLCK SCH (13:30)
[2020-02-06] MEDS: Amlodipine 5 MG TAB PO SCH (20:30)
[2020-02-06] MEDS: Gabapentin 100 MG CAP PO SCH (20:32)
[2020-02-06] MEDS: HYDROcodone/Acetaminophen 5/325 mg Tablet PO PRN (20:36)
[2020-02-06] MEDS: diphenhydrAMINE 50 MG/ML VIAL IVP PRN (23:07)
[2020-02-07] MEDS: HYDROcodone/Acetaminophen 5/325 mg Tablet PO PRN ×2 (00:21→19:38)
[2020-02-07] MEDS: Hydrochlorothiazide 25 MG TAB PO SCH (09:05)
[2020-02-07] MEDS: Losartan 25 MG TAB PO SCH (09:05)
[2020-02-07] MEDS: Zinc Sulfate 220 MG CAP PO SCH (09:06)
[2020-02-07] MEDS: Multivitamin W/ Minerals 1 TAB PO SCH (09:06)
[2020-02-07] MEDS: Ascorbic Acid 500 mg Chewable Tablet PO SCH (09:06)
[2020-02-07] MEDS: Famotidine 20 MG TAB PO SCH ×2 (09:06→19:38)
[2020-02-07] MEDS: Aspirin 81 mg Enteric Coated Tablet PO SCH (09:06)
[2020-02-07] MEDS: Sodium Chloride 0.9% 1,000 ML IV SCH ×2 (09:11→21:50)
[2020-02-07 15:06] LABS: Bacteria/HPF None Seen HPF (None Seen); Bilirubin Negative (Negative); Blood, Urine Negative (Negative); Clarity Clear (Clear); Glucose, Urine (Dipstick) Normal (Negative); Ketone, Urine Negative (Negative); Leukocyte Negative Leu/uL (Negative); Nitrite Negative (Negative); Protein, Urine (Dipstick) Negative (Neg-Trace); RBC/HPF 0-3 HPF (0-3); Specific Gravity, Urine 1.012 (1.002-1.036); Squamous Epithelial 0-3 HPF (0-3); Urobilinogen 3 mg/dL (Less than 2); WBC/HPF 0-3 HPF (0-3)
[2020-02-07] MEDS: Gabapentin 100 MG CAP PO SCH (19:38)
[2020-02-07] MEDS: Amlodipine 5 MG TAB PO SCH (19:38)
[2020-02-08] MEDS: traMADol HCl 50 MG TAB PO PRN (05:51)
[2020-02-08] MEDS: Losartan 25 MG TAB PO SCH (09:07)
[2020-02-08] MEDS: Hydrochlorothiazide 25 MG TAB PO SCH (09:07)
[2020-02-08] MEDS: Multivitamin W/ Minerals 1 TAB PO SCH (09:07)
[2020-02-08] MEDS: Zinc Sulfate 220 MG CAP PO SCH (09:07)
[2020-02-08] MEDS: Aspirin 81 mg Enteric Coated Tablet PO SCH (09:07)
[2020-02-08] MEDS: Famotidine 20 MG TAB PO SCH ×2 (09:07→20:10)
[2020-02-08] MEDS: Ascorbic Acid 500 mg Chewable Tablet PO SCH (09:08)
[2020-02-08] MEDS: HYDROcodone/Acetaminophen 5/325 mg Tablet PO PRN ×2 (09:31→20:11)
[2020-02-08] MEDS: Hyoscyamine Sulfate SL 0.125 mg Tablet SL PRN ×2 (10:35→21:25)
[2020-02-08] MEDS: Sodium Chloride 0.9% 1,000 ML IV SCH ×2 (20:08→21:41)
[2020-02-08] MEDS: Gabapentin 100 MG CAP PO SCH (20:10)
[2020-02-08] MEDS: Amlodipine 5 MG TAB PO SCH (20:10)
[2020-02-09] MEDS: HYDROcodone/Acetaminophen 5/325 mg Tablet PO PRN ×2 (05:20→11:52)
[2020-02-09] MEDS ORDERED: Aspirin 81 mg Enteric Coated Tablet PO SCH (09:00)
[2020-02-09] MEDS: Zinc Sulfate 220 MG CAP PO SCH (09:24)
[2020-02-09] MEDS: Multivitamin W/ Minerals 1 TAB PO SCH (09:24)
[2020-02-09] MEDS: Hydrochlorothiazide 25 MG TAB PO SCH (09:25)
[2020-02-09] MEDS: Losartan 25 MG TAB PO SCH (09:25)
[2020-02-09] MEDS: Famotidine 20 MG TAB PO SCH (09:25)
[2020-02-09] MEDS: Ascorbic Acid 500 mg Chewable Tablet PO SCH (09:25)
[2020-02-09 12:15] VITALS: BP 118/76; TEMP 98.2
== END 2020-02-09 13:40 | disposition home health service (06) | DRG 482 ==
LOC: SURG A 15:04
PROVIDERS: ADMIT Orthopaedic Surgery; ATTEND Orthopaedic Surgery
PROC: 0QSB04Z Reposition Right Lower Femur with Internal Fixation Device, Open Approach (ICD-10-PCS; principal; 2020-02-03)
PROC: 30233N1 Transfusion of Nonautologous Red Blood Cells into Peripheral Vein, Percutaneous Approach (ICD-10-PCS; 2020-02-04)
DX: S72.491A Other fracture of lower end of right femur, initial encounter for closed fracture (principal); X58.XXXA Exposure to other specified factors, initial encounter; Z20.828 Contact with and (suspected) exposure to other viral communicable diseases; J45.909 Unspecified asthma, uncomplicated; K21.9 Gastro-esophageal reflux disease without esophagitis; E03.9 Hypothyroidism, unspecified; F41.9 Anxiety disorder, unspecified; F32.9 Major depressive disorder, single episode, unspecified; D64.9 Anemia, unspecified; Z96.653 Presence of artificial knee joint, bilateral; I10 Essential (primary) hypertension; M19.90 Unspecified osteoarthritis, unspecified site; E66.9 Obesity, unspecified; Z90.710 Acquired absence of both cervix and uterus; Z85.72 Personal history of non-Hodgkin lymphomas; S76.111D Strain of right quadriceps muscle, fascia and tendon, subsequent encounter; Z68.34 Body mass index [BMI] 34.0-34.9, adult; Z79.899 Other long term (current) drug therapy
CPT/HCPCS: 36415; 36430; 76000; 80048; 81001; 85025; 86850; 86900; 86901; 87635; C1713; J0690; J1200; J1885; J2250; J2370; J2405; J2704; J2795; J3010; J3370; J3490; P9016; Q0162; U0003

== ENCOUNTER 2021-03-06 15:04 | Emergency (ER) | payer MEDICARE ==
[2021-03-06 16:17] LABS: #Eosinphils 0.2 thou/uL (0.0-0.7); #Lymphocytes 1.5 thou/uL (1.20-3.40); #Monocytes 0.3 thou/uL (0.11-0.59); #Neutrophils 3.9 thou/uL (1.40-6.50); %Basophils 0.8 % (0.0-1.0); %Eosinophils 3.7 % (0.0-10.0); %Lymphocytes 25.2 % (21.0-51.0); %Monocytes 5.5 % (0.0-10.0); %Neutrophils 64.8 % (42.0-75.0); Hemoglobin 7.4 g/dL (12.0-16.0); Mean Corpuscular HGB CONC 33.7 g/dL (32.0-36.0); Mean Corpuscular Hemoglobin 33.2 pg (27.0-31.0); Mean Corpuscular Volume 98.7 fL (78.0-98.0); Mean Platelet Volume 5.6 fL (7.4-10.4); Platelet Count 299 thou/uL (130-400); RBC Distribution Width 12.9 % (11.5-14.5); Red Blood Cell (RBC) Count 2.23 mill/uL (4.20-5.40); White Blood Cell (WBC) Count 6.1 thou/uL (4.8-10.8)
[2021-03-06 16:39] LABS: ALT (SGPT) 9 U/L (8-55); AST (SGOT) 15 U/L (5-34); Albumin 3.5 g/dL (3.4-4.8); Alkaline Phosphatase 92 U/L (40-110); Anion Gap 13 mmol/L (10-20); BUN (Urea Nitrogen) 17 mg/dL (9.8-20.1); Bilirubin, Total 0.5 mg/dL (0.2-1.2); Calc. Creatinine Clearance 0 mL/min (70-130); Calcium 9.3 mg/dL (7.8-10.44); Carbon Dioxide 25 mmol/L (23-31); Chloride 100 mmol/L (98-107); Globulin 2.8 g/dL (2.4-3.5); Glucose 110 mg/dL (83-110); Potassium 4.1 mmol/L (3.5-5.1); Protein, Total 6.3 g/dL (5.8-8.1); Sodium 134 mmol/L (136-145)
== END 2021-03-06 18:18 | disposition home or self-care (01) ==
LOC: ERS 15:04
DX: Z13.0 Encounter for screening for diseases of the blood and blood-forming organs and certain disorders involving the immune mechanism (principal); I10 Essential (primary) hypertension; M19.90 Unspecified osteoarthritis, unspecified site
CPT/HCPCS: 36415; 80053; 85025; 86850; 86900; 86901; 99283

== ENCOUNTER 2021-03-20 10:57 | Day surgery (SDC) | payer MEDICARE ==
[2021-03-20] MEDS ORDERED: Sodium Chloride 0.9% 10 ML ONE ×2 (11:19)
[2021-03-20] MEDS ORDERED: Acetaminophen 500 MG TAB ONE (11:19)
[2021-03-20] MEDS ORDERED: diphenhydrAMINE 25 MG CAP ONE (11:19)
[2021-03-20] MEDS ORDERED: Acetaminophen 500 MG TAB PO PRN (11:23)
[2021-03-20] MEDS ORDERED: diphenhydrAMINE 25 MG CAP PO PRN (11:24)
[2021-03-20 15:14] VITALS: BP 153/67; TEMP 97.5
== END 2021-03-20 15:28 | disposition home or self-care (01) ==
LOC: ONC/OP 10:57
PROVIDERS: ATTEND Internal Medicine Hematology & Oncology
PROC: 30233N1 Transfusion of Nonautologous Red Blood Cells into Peripheral Vein, Percutaneous Approach (ICD-10-PCS; principal; 2021-03-20)
DX: D64.9 Anemia, unspecified (principal)
CPT/HCPCS: 36430; 86850; 86900; 86901; P9016

== ENCOUNTER 2021-09-03 11:15 | Outpatient (CLI) | payer MEDICARE | END 2021-09-03 11:16 | disposition home or self-care (01) | LOC: BICMAMMO 11:15 | PROVIDERS: ATTEND Family Medicine | DX: Z12.31 Encounter for screening mammogram for malignant neoplasm of breast (principal); Z80.3 Family history of malignant neoplasm of breast; Z85.72 Personal history of non-Hodgkin lymphomas; Z98.890 Other specified postprocedural states | CPT/HCPCS: 77063; 77067 ==

== ENCOUNTER 2021-12-27 21:38 | Emergency (ER) | payer MEDICARE ==
[~2021-12-27 21:38] MED LIST: Iopamidol-370 76% 500 ML 1 ML ONE
[2021-12-27 22:24] LABS: #Basophils 0.1 thou/uL (0.0-0.2); #Eosinphils 0.1 thou/uL (0.0-0.7); #Lymphocytes 1.6 thou/uL (1.20-3.40); #Monocytes 0.6 thou/uL (0.11-0.59); %Eosinophils 2.4 % (0.0-10.0); %Lymphocytes 30.4 % (21.0-51.0); %Monocytes 10.1 % (0.0-10.0); Hemoglobin 11.6 g/dL (12.0-16.0); Mean Corpuscular HGB CONC 33.2 g/dL (32.0-36.0); Mean Corpuscular Hemoglobin 33.1 pg (27.0-31.0); Mean Corpuscular Volume 99.7 fl (78.0-98.0); Mean Platelet Volume 6.1 fL (7.4-10.4); Platelet Count 241 thou/uL (130-400); RBC Distribution Width 11.7 % (11.5-14.5); Red Blood Cell (RBC) Count 3.51 mill/uL (4.20-5.40); White Blood Cell (WBC) Count 5.4 thou/uL (4.8-10.8)
[2021-12-27 22:40] LABS: ALT (SGPT) 12 U/L (8-55); AST (SGOT) 11 U/L (5-34); Albumin 3.7 g/dL (3.4-4.8); Alkaline Phosphatase 67 U/L (40-110); Anion Gap 12 mmol/L (10-20); BUN (Urea Nitrogen) 29 mg/dL (9.8-20.1); Bilirubin, Total 0.6 mg/dL (0.2-1.2); Calc. Creatinine Clearance 0 mL/min (70-130); Carbon Dioxide 28 mmol/L (23-31); Chloride 98 mmol/L (98-107); Estimated GFR 45; Globulin 2.7 g/dL (2.4-3.5); Glucose 117 mg/dL (83-110); Lipase 9 U/L (8-78); Potassium 4.1 mmol/L (3.5-5.1); Protein, Total 6.4 g/dL (5.8-8.1); Sodium 134 mmol/L (136-145)
[2021-12-28] MEDS ORDERED: Ondansetron PF 4 MG/2 ML Vial ONE (00:28)
[2021-12-28] MEDS ORDERED: Morphine 4 MG/ML VIAL ONE (00:28)
[2021-12-28 01:17] LABS: Bilirubin Negative (Negative); Blood, Urine Negative (Negative); Clarity Turbid (Clear); Glucose, Urine (Dipstick) Normal (Negative); Ketone, Urine Negative (Negative); Leukocyte 250 Leu/uL (Negative); Nitrite Negative (Negative); Protein, Urine (Dipstick) Negative (Neg-Trace); RBC/HPF 0-3 HPF (0-3); Specific Gravity, Urine 1.011 (1.002-1.036); Squamous Epithelial 21-50 HPF (0-3); Urobilinogen Normal mg/dL (Less than 2); WBC/HPF 21-50 HPF (0-3)
[2021-12-28 01:19] LABS: Bacteria/HPF 1+ HPF (None Seen)
[2021-12-28] MEDS ORDERED: HYDROcodone/Acetaminophen 5/325 mg Tablet ONE (02:26)
== END 2021-12-28 02:45 | disposition home or self-care (01) ==
LOC: ERS 21:38
DX: N39.0 Urinary tract infection, site not specified (principal); I10 Essential (primary) hypertension
CPT/HCPCS: 36415; 74177; 80053; 81003; 81015; 83690; 85025; 96374; 96375; J2270; J2405; Q9967

== ENCOUNTER 2022-02-26 21:41 | Inpatient (IN) | payer MEDICARE ==
[2022-02-26] MEDS ORDERED: Amiodarone 450 MG, Admixture Fee 1 EACH in Dextrose 5% in Water 250 ML IVPB SCH (22:00)
[2022-02-27] MEDS ORDERED: Furosemide 40 MG/4 ML VIAL ONE ×2 (05:39→13:20)
[2022-02-27] MEDS: Furosemide 40 MG/4 ML VIAL SLOW IVP SCH ×2 (05:52→13:31)
[2022-02-27] MEDS ORDERED: Hyaluronidase, Human Recomb. 150 UNIT/ML VIAL SC SCH (06:30)
[2022-02-27] MEDS ORDERED: Hydrocortisone 1% Cream 30 GM TUBE TOP SCH (06:30)
[2022-02-27] MEDS ORDERED: Diltiazem 125 MG in Sodium Chloride 0.9% 100 ML IVPB SCH (08:00)
[2022-02-27] MEDS ORDERED: Diltiazem 125 MG/25 ML ONE (08:21)
[2022-02-27] MEDS ORDERED: Aspirin Chewable 81 MG TAB ONE (08:36)
[2022-02-27] MEDS ORDERED: Apixaban 5 MG TAB PO SCH (09:00)
[2022-02-27] MEDS ORDERED: Aspirin Chewable 81 MG TAB PO SCH (09:00)
[2022-02-27] MEDS: Aspirin 81 mg Enteric Coated Tablet PO SCH (09:31)
[2022-02-27 09:51] LABS: Mean Corpuscular HGB CONC 33.5 g/dL (32.0-36.0); Mean Corpuscular Hemoglobin 34.2 pg (27.0-31.0); Mean Platelet Volume 7.2 fL (7.4-10.4); Platelet Count 225 10x3/uL (130-400); Red Blood Cell (RBC) Count 4.09 mill/uL (4.20-5.40); White Blood Cell (WBC) Count 8.6 10x3/uL (4.8-10.8)
[2022-02-27 10:00] LABS: Anion Gap 14 mmol/L (10-20); BUN (Urea Nitrogen) 13 mg/dL (9.8-20.1); Calc. Creatinine Clearance 64 mL/min (70-130); Calcium 9.3 mg/dL (7.8-10.44); Carbon Dioxide 28 mmol/L (23-31); Chloride 98 mmol/L (98-107); Estimated GFR 66; Glucose 114 mg/dL (83-110); Sodium 136 mmol/L (136-145)
[2022-02-27] MEDS ORDERED: Morphine 2 MG/ML VIAL SLOW IVP SCH (13:00)
[2022-02-27] MEDS ORDERED: Morphine 2 MG/ML VIAL ONE (13:20)
[2022-02-27 17:07] VITALS: BMI 34.9
[2022-02-27] MEDS ORDERED: Flecainide 50 MG TAB PO SCH (19:00)
[2022-02-28] MEDS ORDERED: Cyclobenzaprine 10 MG TAB PO PRN (08:26)
[2022-02-28] MEDS ORDERED: SOLIFENACIN SUCCINATE 5 MG PO SCH (09:00)
[2022-02-28] MEDS ORDERED: Furosemide 40 MG/4 ML VIAL SLOW IVP SCH (09:00)
[2022-02-28] MEDS ORDERED: Non-Formulary Item 1 EACH (Zinc [Zinc] 50 MG Tablet) PO SCH (09:00)
[2022-02-28] MEDS: Aspirin 81 mg Enteric Coated Tablet PO SCH (09:38)
[2022-02-28] MEDS: Flecainide 50 MG TAB PO SCH ×2 (09:39→20:10)
[2022-02-28] MEDS: Zinc Sulfate 220 MG CAP PO SCH (09:40)
[2022-02-28] MEDS: Trospium 20 MG TAB PO SCH ×2 (09:40→20:10)
[2022-02-28] MEDS ORDERED: Metoprolol Tartrate 5 MG/5 ML VIAL IVP SCH ×2 (20:09→20:30)
[2022-02-28] MEDS ORDERED: ALPRAZolam 0.25 MG TAB PO SCH (21:45)
[2022-03-01 04:59] LABS: Hemoglobin 13.7 g/dL (12.0-16.0); Mean Corpuscular HGB CONC 33.6 g/dL (32.0-36.0); Mean Corpuscular Hemoglobin 34.1 pg (27.0-31.0); Mean Platelet Volume 6.9 fL (7.4-10.4); Platelet Count 219 10x3/uL (130-400); RBC Distribution Width 11.8 % (11.5-14.5); Red Blood Cell (RBC) Count 4.01 mill/uL (4.20-5.40); White Blood Cell (WBC) Count 6.3 10x3/uL (4.8-10.8)
[2022-03-01 05:41] LABS: Anion Gap 9 mmol/L (10-20); BUN (Urea Nitrogen) 19 mg/dL (9.8-20.1); Calc. Creatinine Clearance 94 mL/min (70-130); Calcium 8.9 mg/dL (7.8-10.44); Carbon Dioxide 28 mmol/L (23-31); Chloride 101 mmol/L (98-107); Estimated GFR 84; Glucose 99 mg/dL (83-110); Sodium 135 mmol/L (136-145)
[2022-03-01] MEDS ORDERED: Potassium Chloride 20 MEQ TAB PO SCH (08:15)
[2022-03-01] MEDS ORDERED: Electrolyte Replacement Protocol 1 EACH FS SCH (08:15)
[2022-03-01 09:03] LABS: Magnesium 1.8 mg/dL (1.6-2.6)
[2022-03-01] MEDS: Docusate 100 MG CAP PO SCH ×2 (09:09→22:27)
[2022-03-01] MEDS: Aspirin 81 mg Enteric Coated Tablet PO SCH (09:09)
[2022-03-01] MEDS: Zinc Sulfate 220 MG CAP PO SCH (09:10)
[2022-03-01] MEDS: Trospium 20 MG TAB PO SCH ×2 (09:10→22:27)
[2022-03-01] MEDS: Flecainide 50 MG TAB PO SCH ×2 (09:10→22:27)
[2022-03-01] MEDS ORDERED: Magnesium 2 GM/50 ML(in water) 2 GM in Premix Bag 1 BAG IVPB SCH (09:45)
[2022-03-01] MEDS: Diltiazem 125 MG in Sodium Chloride 0.9% 100 ML IVPB SCH (10:18)
[2022-03-01] MEDS ORDERED: Polyethylene Glycol 3350 17 GM Packet PO PRN (12:27)
[2022-03-01] MEDS ORDERED: Digoxin 0.5 MG/2 ML AMP SLOW IVP SCH (13:30)
[2022-03-01 17:37] LABS: Potassium 3.8 mmol/L (3.5-5.1)
[2022-03-01] MEDS: ALPRAZolam 0.25 MG TAB PO PRN (22:27)
[2022-03-01] MEDS: Folic Acid 1 MG TAB PO SCH (22:27)
[2022-03-01] MEDS: Multivit, Therapeutic 1 TAB PO SCH (22:27)
[2022-03-01] MEDS: Cyanocobalamin (Vitamin B-12) 1,000 MCG TAB PO SCH (22:27)
[2022-03-02] MEDS: Diltiazem 125 MG in Sodium Chloride 0.9% 100 ML IVPB SCH ×2 (00:34→13:43)
[2022-03-02 05:20] LABS: Phosphorus 3.2 mg/dL (2.3-4.7)
[2022-03-02 05:27] LABS: Anion Gap 12 mmol/L (10-20); BUN (Urea Nitrogen) 21 mg/dL (9.8-20.1); Calc. Creatinine Clearance 98 mL/min (70-130); Calcium 8.7 mg/dL (7.8-10.44); Carbon Dioxide 23 mmol/L (23-31); Chloride 103 mmol/L (98-107); Estimated GFR 88; Glucose 87 mg/dL (83-110); Magnesium 2.2 mg/dL (1.6-2.6); Potassium 3.8 mmol/L (3.5-5.1); Sodium 134 mmol/L (136-145)
[2022-03-02] MEDS: Zinc Sulfate 220 MG CAP PO SCH (09:08)
[2022-03-02] MEDS: Docusate 100 MG CAP PO SCH ×2 (09:08→20:49)
[2022-03-02] MEDS: Aspirin 81 mg Enteric Coated Tablet PO SCH (09:08)
[2022-03-02] MEDS: Trospium 20 MG TAB PO SCH ×2 (09:08→20:48)
[2022-03-02] MEDS: Flecainide 50 MG TAB PO SCH ×2 (09:08→20:49)
[2022-03-02] MEDS ORDERED: Digoxin 0.5 MG/2 ML AMP SLOW IVP SCH (13:15)
[2022-03-02] MEDS: Folic Acid 1 MG TAB PO SCH (20:48)
[2022-03-02] MEDS: Cyanocobalamin (Vitamin B-12) 1,000 MCG TAB PO SCH (20:49)
[2022-03-02] MEDS: Multivit, Therapeutic 1 TAB PO SCH (20:49)
[2022-03-02] MEDS: ALPRAZolam 0.25 MG TAB PO PRN (22:43)
[2022-03-03] MEDS: Diltiazem 125 MG in Sodium Chloride 0.9% 100 ML IVPB SCH (02:23)
[2022-03-03 05:38] LABS: Anion Gap 12 mmol/L (10-20); BUN (Urea Nitrogen) 19 mg/dL (9.8-20.1); Calc. Creatinine Clearance 95 mL/min (70-130); Calcium 8.8 mg/dL (7.8-10.44); Carbon Dioxide 25 mmol/L (23-31); Chloride 103 mmol/L (98-107); Estimated GFR 83; Glucose 93 mg/dL (83-110); Magnesium 1.9 mg/dL (1.6-2.6); Potassium 3.7 mmol/L (3.5-5.1); Sodium 136 mmol/L (136-145)
[2022-03-03] MEDS ORDERED: Magnesium 2 GM/50 ML(in water) 2 GM in Premix Bag 1 BAG IVPB SCH (08:00)
[2022-03-03] MEDS ORDERED: PROPOFOL 200 MG/20 ML VIAL ONE (08:41)
[2022-03-03] MEDS ORDERED: PHENYLEPHRINE-NS 100 MCG/ML 10 ML SYRINGE ONE (08:41)
[2022-03-03] MEDS ORDERED: Apixaban 5 MG TAB PO SCH (09:00)
[2022-03-03] MEDS: Trospium 20 MG TAB PO SCH (11:20)
[2022-03-03] MEDS: Flecainide 50 MG TAB PO SCH (11:20)
[2022-03-03] MEDS: Aspirin 81 mg Enteric Coated Tablet PO SCH (11:20)
[2022-03-03] MEDS: Zinc Sulfate 220 MG CAP PO SCH (11:20)
[2022-03-03] MEDS: Docusate 100 MG CAP PO SCH (11:20)
[2022-03-03 12:00] VITALS: BP 137/84; TEMP 97.6
[2022-03-04] MEDS ORDERED: Losartan 25 MG TAB PO SCH (09:00)
== END 2022-03-03 15:42 | disposition home or self-care (01) | DRG 291 ==
LOC: ERS 21:41 → ERHOLD 22:38 → OBSVTOIN 02-27 11:15 → 2NO 02-27 16:10
PROVIDERS: ADMIT Student in an Organized Health Care Education/Training Program; ATTEND Hospitalist
PROC: B24BZZ4 Ultrasonography of Heart with Aorta, Transesophageal (ICD-10-PCS; principal; 2022-03-03)
PROC: 5A2204Z Restoration of Cardiac Rhythm, Single (ICD-10-PCS; 2022-03-03)
DX: I13.0 Hypertensive heart and chronic kidney disease with heart failure and stage 1 through stage 4 chronic kidney disease, or unspecified chronic kidney disease (principal); I50.33 Acute on chronic diastolic (congestive) heart failure; I48.91 Unspecified atrial fibrillation; Z20.822 Contact with and (suspected) exposure to COVID-19; M81.0 Age-related osteoporosis without current pathological fracture; G62.9 Polyneuropathy, unspecified; Z96.653 Presence of artificial knee joint, bilateral; N18.2 Chronic kidney disease, stage 2 (mild); E66.9 Obesity, unspecified; D75.89 Other specified diseases of blood and blood-forming organs; Z90.710 Acquired absence of both cervix and uterus; Z79.82 Long term (current) use of aspirin; Z68.35 Body mass index [BMI] 35.0-35.9, adult
CPT/HCPCS: 36415; 36416; 80048; 83735; 84100; 84443; 85027; 92960; 93005; 93010; 93306; 93312; 96365; 96366; 96372; 96375; 97139; G0378; J0282; J1160; J1650; J1940; J2272; J2704; J3473; J3475; J3490; J7070

== ENCOUNTER 2023-08-06 10:54 | Outpatient (CLI) | payer MEDICARE | END 2023-08-06 10:55 | disposition home or self-care (01) | LOC: BICMAMMO 10:54 | PROVIDERS: ATTEND Internal Medicine | DX: Z12.31 Encounter for screening mammogram for malignant neoplasm of breast (principal); Z80.3 Family history of malignant neoplasm of breast; Z85.72 Personal history of non-Hodgkin lymphomas | CPT/HCPCS: 77063; 77067 ==

== ENCOUNTER 2023-10-13 23:11 | Inpatient (IN) | payer MEDICARE ==
[2023-10-14 00:26] LABS: #Basophils 0.05 10x3/uL (0.0-0.2); %Basophils 0.9 % (0.0-1.0); %Eosinophils 2.4 % (0.0-10.0); %Lymphocytes 26.4 % (21.0-51.0); %Neutrophils 62.1 % (42.0-75.0); Hematocrit 47.2 % (36.0-47.0); Hemoglobin 15.6 g/dL (12.0-16.0); Mean Corpuscular HGB CONC 33.1 g/dL (32.0-36.0); Mean Corpuscular Hemoglobin 32.6 pg (27.0-31.0); Mean Corpuscular Volume 98.7 fL (78.0-98.0); Mean Platelet Volume 9.9 fL (7.4-10.4); Platelet Count 220 10x3/uL (130-400); RBC Distribution Width 15.1 % (11.5-14.5); Red Blood Cell (RBC) Count 4.78 mill/uL (4.20-5.40)
[2023-10-14 00:38] LABS: ALT (SGPT) 57 U/L (8-55); AST (SGOT) 32 U/L (5-34); Albumin 4.1 g/dL (3.4-4.8); Alkaline Phosphatase 92 U/L (40-110); Anion Gap 19 mmol/L (10-20); BUN (Urea Nitrogen) 30 mg/dL (9.8-20.1); Bilirubin, Total 1.3 mg/dL (0.2-1.2); Calc. Creatinine Clearance 0 mL/min (70-130); Calcium 9.9 mg/dL (7.8-10.44); Carbon Dioxide 25 mmol/L (23-31); Chloride 104 mmol/L (98-107); Estimated GFR 41; Globulin 3.3 g/dL (2.4-3.5); Glucose 96 mg/dL (83-110); Potassium 3.6 mmol/L (3.5-5.1); Protein, Total 7.4 g/dL (5.8-8.1); Sodium 144 mmol/L (136-145)
[2023-10-14 00:42] LABS: Troponin I 0.023 ng/mL (< 0.028)
[2023-10-14] MEDS ORDERED: Metoprolol Tartrate 5 MG (5 mL) VIAL ONE (01:27)
[2023-10-14] MEDS ORDERED: Ondansetron PF 4 MG/2 ML Vial IVP PRN (03:00)
[2023-10-14] MEDS ORDERED: Acetaminophen 325 MG TAB PO PRN (03:00)
[2023-10-14] MEDS: Amiodarone 150 MG, Admixture Fee 1 EACH in Dextrose 5% in Water 100 ML IVPB SCH (04:26)
[2023-10-14] MEDS: Amiodarone 450 MG in Dextrose 5% in Water 250 ML IVPB SCH (04:40)
[2023-10-14 04:55] LABS: #Basophils 0.03 10x3/uL (0.0-0.2); %Basophils 0.7 % (0.0-1.0); %Eosinophils 3.3 % (0.0-10.0); %Lymphocytes 30.1 % (21.0-51.0); %Monocytes 9.5 % (0.0-10.0); %Neutrophils 56.2 % (42.0-75.0); Hematocrit 39.5 % (36.0-47.0); Hemoglobin 12.8 g/dL (12.0-16.0); Mean Corpuscular HGB CONC 32.4 g/dL (32.0-36.0); Mean Corpuscular Hemoglobin 31.8 pg (27.0-31.0); Mean Corpuscular Volume 98.3 fL (78.0-98.0); Platelet Count 171 10x3/uL (130-400); Red Blood Cell (RBC) Count 4.02 mill/uL (4.20-5.40)
[2023-10-14 05:17] LABS: Anion Gap 15 mmol/L (10-20); BUN (Urea Nitrogen) 30 mg/dL (9.8-20.1); Calc. Creatinine Clearance 57 mL/min (70-130); Calcium 8.8 mg/dL (7.8-10.44); Carbon Dioxide 22 mmol/L (23-31); Chloride 108 mmol/L (98-107); Estimated GFR 53; Glucose 93 mg/dL (83-110); Potassium 3.2 mmol/L (3.5-5.1); Sodium 142 mmol/L (136-145)
[2023-10-14] MEDS: Potassium Chloride 20 MEQ TAB PO SCH (08:35)
[2023-10-14] MEDS: Apixaban 5 MG TAB PO SCH (08:35)
[2023-10-14] MEDS: Digoxin 0.5 MG/2 ML AMP SLOW IVP SCH (16:34)
[2023-10-14] MEDS: Furosemide 20 MG (2 mL) VIAL SLOW IVP SCH (17:26)
[2023-10-14] MEDS: Sacubitril 24MG/Valsartan 26 MG TAB PO SCH (20:44)
[2023-10-15 04:36] LABS: #Basophils 0.03 10x3/uL (0.0-0.2); %Basophils 0.4 % (0.0-1.0); %Eosinophils 1.8 % (0.0-10.0); %Lymphocytes 20.9 % (21.0-51.0); %Monocytes 8.8 % (0.0-10.0); %Neutrophils 67.8 % (42.0-75.0); Hematocrit 43.8 % (36.0-47.0); Hemoglobin 14.3 g/dL (12.0-16.0); Mean Corpuscular HGB CONC 32.6 g/dL (32.0-36.0); Mean Corpuscular Hemoglobin 32.1 pg (27.0-31.0); Mean Corpuscular Volume 98.2 fL (78.0-98.0); Mean Platelet Volume 9.9 fL (7.4-10.4); Platelet Count 171 10x3/uL (130-400); Red Blood Cell (RBC) Count 4.46 mill/uL (4.20-5.40)
[2023-10-15 04:53] VITALS: BMI 323701.8
[2023-10-15 04:58] LABS: Anion Gap 16 mmol/L (10-20); BUN (Urea Nitrogen) 26 mg/dL (9.8-20.1); Calc. Creatinine Clearance 54 mL/min (70-130); Calcium 8.8 mg/dL (7.8-10.44); Carbon Dioxide 25 mmol/L (23-31); Chloride 104 mmol/L (98-107); Cholesterol 136 mg/dl (< 200 Desired); Estimated GFR 50; Glucose 99 mg/dL (83-110); HDL Cholesterol 45 mg/dL (>60 Neg Risk); LDL Cholesterol, Calculated 75 mg/dL; Magnesium 1.9 mg/dL (1.6-2.6); Potassium 4.3 mmol/L (3.5-5.1); Sodium 141 mmol/L (136-145); Triglycerides 80 mg/dL (Less than 150)
[2023-10-15] MEDS: Furosemide 20 MG (2 mL) VIAL SLOW IVP SCH (05:23)
[2023-10-16 04:35] LABS: #Basophils 0.03 10x3/uL (0.0-0.2); %Basophils 0.6 % (0.0-1.0); %Eosinophils 3.6 % (0.0-10.0); %Lymphocytes 25.1 % (21.0-51.0); %Monocytes 9.4 % (0.0-10.0); %Neutrophils 61.1 % (42.0-75.0); Hematocrit 40.9 % (36.0-47.0); Hemoglobin 13.8 g/dL (12.0-16.0); Mean Corpuscular HGB CONC 33.7 g/dL (32.0-36.0); Mean Corpuscular Hemoglobin 32.2 pg (27.0-31.0); Mean Corpuscular Volume 95.3 fL (78.0-98.0); Mean Platelet Volume 9.7 fL (7.4-10.4); Platelet Count 171 10x3/uL (130-400); RBC Distribution Width 14.6 % (11.5-14.5); Red Blood Cell (RBC) Count 4.29 mill/uL (4.20-5.40)
[2023-10-16 04:59] LABS: Anion Gap 15 mmol/L (10-20); BUN (Urea Nitrogen) 19 mg/dL (9.8-20.1); Calc. Creatinine Clearance 70 mL/min (70-130); Calcium 8.4 mg/dL (7.8-10.44); Carbon Dioxide 26 mmol/L (23-31); Chloride 104 mmol/L (98-107); Estimated GFR 68; Glucose 106 mg/dL (83-110); Magnesium 1.8 mg/dL (1.6-2.6); Potassium 3.4 mmol/L (3.5-5.1); Sodium 142 mmol/L (136-145)
[2023-10-16] MEDS: ALPRAZolam 0.5 MG TAB PO SCH (09:49)
[2023-10-16] MEDS ORDERED: PROPOFOL 200 MG/20 ML VIAL ONE (13:52)
[2023-10-16] MEDS ORDERED: Lidocaine 1% PF 5 ML VIAL ONE (13:52)
[2023-10-16] MEDS: Potassium Chloride 20 MEQ TAB PO SCH (18:13)
[2023-10-16] MEDS: Amiodarone 200 MG TAB PO SCH (20:43)
[2023-10-17 05:43] LABS: Anion Gap 12 mmol/L (10-20); BUN (Urea Nitrogen) 18 mg/dL (9.8-20.1); Calc. Creatinine Clearance 72 mL/min (70-130); Calcium 8.6 mg/dL (7.8-10.44); Carbon Dioxide 27 mmol/L (23-31); Chloride 105 mmol/L (98-107); Estimated GFR 72; Glucose 124 mg/dL (83-110); Potassium 3.9 mmol/L (3.5-5.1); Sodium 140 mmol/L (136-145)
[2023-10-17] MEDS ORDERED: Spironolactone 25 MG TAB PO SCH (08:00)
[2023-10-17 08:28] VITALS: TEMP 97.5
[2023-10-17] MEDS: Furosemide 40 MG TAB PO SCH (09:10)
[2023-10-17] MEDS: Empagliflozin 10 MG TAB PO SCH (09:12)
[2023-10-17 15:28] VITALS: BP 118/71
[2023-10-24] MEDS ORDERED: Amiodarone 200 MG TAB PO SCH (09:00)
== END 2023-10-17 15:15 | disposition home or self-care (01) | DRG 291 ==
LOC: ERS 23:11 → 2NO 10-14 01:49
PROVIDERS: ADMIT Internal Medicine; ATTEND Family Medicine
PROC: 5A2204Z Restoration of Cardiac Rhythm, Single (ICD-10-PCS; principal; 2023-10-16)
DX: I11.0 Hypertensive heart disease with heart failure (principal); I50.43 Acute on chronic combined systolic (congestive) and diastolic (congestive) heart failure; N17.9 Acute kidney failure, unspecified; I48.91 Unspecified atrial fibrillation; I25.10 Atherosclerotic heart disease of native coronary artery without angina pectoris; I49.3 Ventricular premature depolarization; I42.8 Other cardiomyopathies; I35.0 Nonrheumatic aortic (valve) stenosis; E78.00 Pure hypercholesterolemia, unspecified; I44.7 Left bundle-branch block, unspecified; Z96.653 Presence of artificial knee joint, bilateral; Z96.611 Presence of right artificial shoulder joint; Z79.01 Long term (current) use of anticoagulants; Z79.899 Other long term (current) drug therapy; Z90.710 Acquired absence of both cervix and uterus; Z98.890 Other specified postprocedural states; Z87.891 Personal history of nicotine dependence; Z85.72 Personal history of non-Hodgkin lymphomas
CPT/HCPCS: 36415; 71045; 80048; 80053; 80061; 83605; 83735; 83880; 84484; 85025; 92960; 93005; 93010; 93306; 94760; 96374; 97139; J0282; J1160; J1940; J2704; J7070

== ENCOUNTER 2024-12-22 09:23 | Outpatient (CLI) | payer MEDICARE ==
[2024-12-22 10:30] LABS: #Basophils 0.04 10x3/uL (0.0-0.2); #Eosinophils 0.16 10x3/uL (0.0-0.7); #Monocytes 0.32 10x3/uL (0.11-0.59); #Neutrophils 2.71 10x3/uL (1.40-6.50); %Basophils 0.8 % (0.0-1.0); %Eosinophils 3.3 % (0.0-10.0); %Lymphocytes 33.1 % (21.0-51.0); %Monocytes 6.6 % (0.0-10.0); %Neutrophils 56.0 % (42.0-75.0); Hematocrit 36.2 % (36.0-47.0); Hemoglobin 11.5 g/dL (12.0-16.0); Mean Corpuscular Hemoglobin 31.0 pg (27.0-31.0); Mean Corpuscular Volume 97.6 fL (78.0-98.0); Platelet Count 161 10x3/uL (130-400); Red Blood Cell (RBC) Count 3.71 mill/uL (4.20-5.40); White Blood Cell (WBC) Count 4.84 10x3/uL (4.8-10.8)
[2024-12-22 10:44] LABS: INR-International Normal Ratio 1.3; PTT 31.1 sec (22.9-36.1); Prothrombin Time 16.6 sec (12.0-14.7)
[2024-12-22 11:02] LABS: ALT (SGPT) 10 U/L (Less than 34); AST (SGOT) 22 U/L (11-34); Albumin 3.7 g/dL (3.1-4.5); Alkaline Phosphatase 87 U/L (40-110); Anion Gap 12 mmol/L (10-20); BUN (Urea Nitrogen) 34 mg/dL (9.8-20.1); Bilirubin, Total 0.6 mg/dL (0.3-1.2); Calc. Creatinine Clearance 0 mL/min (70-130); Calcium 9.1 mg/dL (7.8-10.44); Carbon Dioxide 23 mmol/L (23-31); Chloride 105 mmol/L (98-107); Globulin 3.1 g/dL (2.4-3.5); Glucose 92 mg/dL (83-110); Potassium 4.8 mmol/L (3.5-5.1); Sodium 135 mmol/L (136-145)
== END 2024-12-22 09:24 | disposition home or self-care (01) ==
LOC: LABBT 09:23
PROVIDERS: ATTEND Internal Medicine Cardiovascular Disease
DX: Z01.818 Encounter for other preprocedural examination (principal); I48.0 Paroxysmal atrial fibrillation; Z91.81 History of falling
CPT/HCPCS: 80053; 85025; 85610; 85730; 86850; 86900; 86901; 93005; 93010

== ENCOUNTER 2025-02-21 06:28 | Day surgery (SDC) | payer MEDICARE ==
[2025-02-13 10:33] VITALS: BMI 32.9
[2025-02-21] MEDS ORDERED: PROPOFOL 200 MG/20 ML VIAL ONE (08:45)
[2025-02-21] MEDS ORDERED: Lidocaine 1% PF 5 ML VIAL ONE (08:45)
[2025-02-21] MEDS ORDERED: Etomidate 40 MG (20 mL) VIAL ONE (08:45)
== END 2025-02-21 10:22 | disposition home or self-care (01) ==
LOC: SDC 06:28
PROVIDERS: ATTEND Internal Medicine Cardiovascular Disease
DX: I08.1 Rheumatic disorders of both mitral and tricuspid valves (principal); I48.0 Paroxysmal atrial fibrillation; I70.0 Atherosclerosis of aorta; Z95.818 Presence of other cardiac implants and grafts; Z88.8 Allergy status to other drugs, medicaments and biological substances; Z90.710 Acquired absence of both cervix and uterus; Z98.890 Other specified postprocedural states
CPT/HCPCS: 93312; J2704